=== PATIENT | female | born 1975 | race Caucasian/White ===

== ENCOUNTER 2017-01-06 17:00 | Inpatient (IN) | payer OTHER ==
[2017-01-04] MEDS: IBUPROFEN 800 MG TABLET PO PRN (20:40)
[2017-01-06] MEDS ORDERED: RINGERS SOLUTION,LACTATED 1,000 ML IV ONE (17:36)
[2017-01-06] MEDS ORDERED: DEXTROSE 5%-LACTATED RINGERS 1,000 ML IV PRN (17:36)
[2017-01-06] MEDS ORDERED: LIDOCAINE HCL 50 ML VIAL PERI PRN (17:36)
[2017-01-06] MEDS ORDERED: OXYTOCIN/DEXTROSE 5%-WATER 30 UNITS/500 ML BAG IV ONE ×2 (17:36→19:48)
[2017-01-06] MEDS ORDERED: RINGERS SOLUTION,LACTATED 1,000 ML IV PRN (17:36)
[2017-01-06] MEDS ORDERED: BUPIVACAINE HCL/0.9 % NACL/PF 250 ML EP PRN (18:16)
--- NOTE | 2017-01-06 18:22 | OR ---
Anesthesia Pre Procedure Eval Date of Service: 01/06/17 Pre Procedure Evaluation: Last Vital Signs Temp Pulse Resp BP Pulse Ox Anesthesia Pre Procedure Evaluation Heart Rate:82 Blood Pressure:115/79 Termperature:36.4 Respiratory Rate:18 SaO2:97 DATE: 01/06/2017 TIME; 1820 INDICATIONS: Active labor, labor pain PAST MEDICAL HISTORY: Multipara patient in active labor, membranes just ruptured. She has a history of rapid delivery after rupturing the membranes. EXAM: Heart regular; lungs clear ASSESSMENT OF MEDICAL STATUS: Appropriate candidate for labor analgesia PLANNED PROCEDURE: Combination spinal epidural for labor analgesia. Home Medications: HOME MEDICATIONS Vit#96/Ferrous Fum/FA [ S] 1 tab PO DAILY 11/22/15 [Last Taken 11/22/15 1 tab] Ibuprofen [Motrin] 800 mg PO Q6H PRN #0 tablet 11/25/15 [Last Taken Unknown]
[2017-01-06] MEDS ORDERED: fentaNYL CITRATE/PF 50 MCG/ML AMPUL IT SCH (18:30)
[2017-01-06] MEDS ORDERED: fentaNYL CITRATE/PF 50 MCG/ML AMPUL ONE (18:32)
--- NOTE | 2017-01-06 18:44 | OR ---
Anesthesia Procedure Note - Anesthesia Procedure Note Date of Service: 01/06/17 Narrative: Vital Signs - Last Taken Temp 36.6 C 11/25/15 13:00 Pulse Resp BP 114/51 11/25/15 13:00 Pulse Ox 01/06/17 18:42 ANESTHESIA PROCEDURE NOTE Date of Procedure: 01/06/2017 Time of procedure:. 1820 Performed by: HILL Anglin CRNA, MSN Fish Culturist: Kathy Foster RN. Preprocedure diagnosis: Active labor, labor pain. Post procedure diagnosis: Same. Procedure: Labor Epidural Placement L3 4. Indications: Labor pain. Findings: See below. Details of the procedure: The patient was placed on the side of the bed in sitting position. The patient was prepped with DuraPrep and draped in a sterile fashion. Lidocaine 1% was infiltrated to the skin and subcutaneous tissues at the level of the L3 4 interspace. The epidural space was identified using a 18-gauge Tuohy needle with [id number] technique. Fentanyl 20 g was given intrathecally the intrathecal needle was then removed and the epidural catheter was threaded approximately 4 cm, the epidural needle was then removed, and after careful aspiration 3 mL of 1.5% lidocaine with 1-200,000 epinephrine was injected without change in maternal heart rate or sensorium. The catheter was then taped in place. EBL: Minimal. Fluids: N/A. Specimen: N/A. Post procedure condition: The patient tolerated the procedure well with. Relief. No complications were noted. Thank you for this consultation. Graeme Min CRNA, SLASHER TENDER HELPER, MSN
[2017-01-06] MEDS ORDERED: GLYCERIN/WITCH HAZEL LEAF 40 APPL BOX TP PRN (19:48)
[2017-01-06] MEDS ORDERED: HYDROCORTISONE 30 APPL TUBE TP PRN (19:48)
[2017-01-06] MEDS ORDERED: BENZOCAINE/MENTHOL 81 SPRAY CAN TP PRN (19:48)
[2017-01-06] MEDS ORDERED: oxyCODONE HCL/ACETAMINOPHEN 1 TAB TABLET PO PRN ×2 (19:48)
[2017-01-06] MEDS ORDERED: SENNOSIDES 8.6 MG TABLET PO PRN (19:48)
[2017-01-06] MEDS ORDERED: BISACODYL 10 MG SUPP.RECT RC PRN (19:48)
--- NOTE | 2017-01-06 19:52 | OR ---
Operative Report - Dictated Report Narrative: Spontaneous Vaginal Delivery Viable male with APGARS of 9 at 1 and 9 at 5 minutes. She delivered at 1927. Presentation was LUANA. A double loose nuchal cord was noted and reduced after delivery of the head. The anterior shoulder delivered without difficulty followed by the left shoulder and the remainder of the baby. Baby was placed on the maternal abdomen and spontaneous cry was noted. The cord was clamped and cut after approximately 60 seconds. Weight: 6 pounds 12.3 ounces or 3072 g Placenta was delivered spontaneously and intact. Second-degree midline vaginal laceration was noted and repaired with 2-0 Vicryl. Estimated blood loss: 150 ml Mother and baby tolerated delivery well. History for Definition: * The number of deliveries resulting in a live the patient experienced prior to current hospitalization * The previous delivery of live twins or any live multiple gestation is considered one live event. *If primagravida or nulliparous is documented select zero for the number of previous live births. Live Events: 2
[2017-01-06] MEDS: DOCUSATE SODIUM 100 MG CAPSULE PO SCH (21:29)
[2017-01-06] MEDS: IBUPROFEN 800 MG TABLET PO PRN (22:30)
[2017-01-07] MEDS: IBUPROFEN 800 MG TABLET PO PRN ×2 (04:38→12:44)
[2017-01-07] MEDS: DOCUSATE SODIUM 100 MG CAPSULE PO SCH ×2 (10:08→20:39)
[2017-01-07] MEDS: PRENATAL VIT#96/FERROUS FUM/FA 1 TAB TABLET PO SCH (10:08)
--- NOTE | 2017-01-07 11:52 | PN ---
Progess Note - Interim Narrative: 01/07/17 11:51 progress note Subjective: The patient is doing well. She is ambulating, voiding, tolerating by mouth. She has minimal pain and moderate lochia. Objective: General: No acute distress Abdomen: Soft, nontender, fundus is firm just below the umbilicus Extremities: minimal edema, nontender to palpation Assessment and plan: day 1 Feeding: Bottle Pain: Controlled with by mouth medication control: Possibly permanent Routine care.
[2017-01-08] MEDS: IBUPROFEN 800 MG TABLET PO PRN ×2 (00:40→10:55)
[2017-01-08 08:26] VITALS: BP 113/58
[2017-01-08] MEDS: DOCUSATE SODIUM 100 MG CAPSULE PO SCH (08:51)
[2017-01-08] MEDS: PRENATAL VIT#96/FERROUS FUM/FA 1 TAB TABLET PO SCH (08:51)
--- NOTE | 2017-01-08 08:56 | PN ---
Progess Note - Interim Narrative: 01/08/17 08:56 progress note Subjective: The patient is doing well. She is ambulating, voiding, tolerating by mouth. She has minimal pain and moderate lochia. Objective: General: No acute distress Abdomen: Soft, nontender, fundus is firm just below the umbilicus Extremities: minimal edema, nontender to palpation Assessment and plan: day 2 Feeding: Bottle Pain: Controlled with by mouth medication control: OCPs until 's vasectomy Routine care.
== END 2017-01-08 14:10 | disposition home or self-care (01) | DRG 775 ==
LOC: OB 17:00
PROVIDERS: ADMIT Obstetrics & Gynecology; ATTEND Obstetrics & Gynecology Gynecologic Oncology
PROC: 10E0XZZ Delivery of Products of Conception, External Approach (ICD-10-PCS; principal; 2017-01-06)
PROC: 0KQM0ZZ Repair Perineum Muscle, Open Approach (ICD-10-PCS; 2017-01-06)
PROC: 4A1HXCZ Monitoring of Products of Conception, Cardiac Rate, External Approach (ICD-10-PCS; 2017-01-06)
PROC: 3E0S3CZ (ICD-10-PCS; 2017-01-06)
DX: O69.81X0 Labor and delivery complicated by cord around neck, without compression, not applicable or unspecified (principal); O70.1 Second degree perineal laceration during delivery; D25.9 Leiomyoma of uterus, unspecified; O09.513 Supervision of elderly primigravida, third trimester; Z3A.38 38 weeks gestation of pregnancy; Z37.0 Single live birth

== ENCOUNTER 2017-09-26 17:51 | Emergency (ER) | payer OTHER ==
--- NOTE | 2017-09-26 18:19 | ERNOTE ---
Chest Pain/Cardiac HPI Date of Service: 09/26/17 Chief Complaint: Palpitations Time Seen by Provider: 09/26/17 18:05 Source: patient Exam Limitations: no limitations Immunizations: IMMUNIZATION HX Immunizations Up to Date Yes History of Influenza Vaccine No Hx Pneumococcal Vaccination No Allergies/Adverse Reactions: Allergies No Known Allergies Allergy (Verified 09/26/17 18:10) Home Medications: HOME MEDICATIONS NK [No Home Medication] 09/26/17 [Last Taken Unknown] Narrative: Pt. comes in with c/o palpitations for a week. pt. states that she feels her heart beating heavily but denies and skipping of beats or beating fast. Pt. denies any syncope, dizziness, malaise, fatigue, SOB, CP, NVD, fever, recent illness, or recent injury. Pt. states that the last time that she was at the doctor that she felt fine and it was after having a baby 7 months ago and her blood pressure has always been normal as well. Review of Systems - Review of Systems Constitutional: Present: no symptoms reported. Absent: recent illness, fever, chills, weakness, fatigue, malaise EYE: Present: no symptoms reported ENT: Present: no symptoms reported Respiratory: Present: no symptoms reported. Absent: shortness of breath, cough , orthopnea, wheezing Cardiology: Present: palpitations. Absent: chest pain, syncope, edema, claudication Gastrointestinal/Abdominal: Present: no symptoms reported. Absent: nausea, vomiting, diarrhea, abdominal pain Genitourinary: Present: no symptoms reported Musculoskeletal: Present: no symptoms reported. Absent: back pain, neck pain, joint pain Skin: Present: no symptoms reported. Absent: rash, change in color Neurological: Present: no symptoms reported. Absent: headache, dizziness/light- headedness, weakness, numbness, tingling Psych: Present: no symptoms reported. Absent: anxiety, depressed All Other Systems: All systems neg except as marked - Patient's Past Medical History Patient History - Medical: No pertinent hx Patient History - Cardiac/Respiratory: No pertinent hx Patient History - Cancer: No Hx of Cancer Patient History - Surgical Procedures: Other, Orthopedic Patient History - Other: None LMP (females 10-50): last week - Social History Living Situations: home Smoking Status: Never smoker - Immunizations Immunizations Up to Date: Yes Hx Pneumococcal Vaccination: No History of Influenza Vaccine: No Physical Exam - Physical Exam General Appearance: Present: wd/wn, alert, no apparent distress Head Exam: Present: normal inspection, no evidence of injury Eye Exam: Normal inspection: bilateral, PERRL: bilateral, EOMI: bilateral Ears, Nose, Throat: Present: normal ENT inspection, normal pharynx Neck: Present: normal inspection, nontender. Absent: lymphadenopathy (R), lymphadenopathy (L) Respiratory: Present: no respiratory distress, normal breath sounds, no accessory muscle use, chest nontender, lungs clear Cardiovascular/Chest: Present: regular rate, rhythm, no murmur, normal peripheral pulses Gastrointestinal/Abdominal: Present: normal bowel sounds, nontender, nondistended, soft, no organomegaly Back Exam: Present: normal inspection Extremity Exam: Present: normal inspection Neurological Exam: Present: alert, oriented, normal mood/affect, no motor/ sensory deficits Skin Exam: Present: normal color, warm/dry. Absent: pallor, skin rash ED Progress - Date and Time Seen: Date and Time: 09/26/17 19:[address] Yeboah and as pt. is not symptomatic just feels her heart beating, and her exam and testing is negative feel that pt. needs to follow up to evaluate st depression and htn - Vital Signs Patient's Vital Signs:: I have reviewed the patient's vital signs. Vital Signs: Vital Signs 09/26/17 18:06 Temperature 38.0 C H Pulse Rate 86 Respiratory 14 Rate Blood Pressure 151/87 O2 Sat by Pulse 99 Oximetry - EKG EKG: ST depression - moderate in inferior leads and anterior EKG read: Reviewed by me EKG Comments: Interp by Dr Yeboah. - X-Ray X-Ray #1 X-Ray: chest Interpretation: Reviewed by me X-ray Comments: no consolidation, no cardiomegaly, no infiltrate - Progress/Reassessment Chief Complaint: Palpitations Departure Clinical Impression: Heart palpitations - Departure Disposition: Home self-care Condition: Good Instructions: Palpitations, [id number] Additional Instructions: Please follow up with Dr Shore on friday call for appointment. Referrals: Ashly Kimbrough DO [Primary Care Provider] -
[2017-09-26 18:32] LABS: Hematocrit 43.3 % (37.0-47.0); Hemoglobin 15.2 gm/dL (12.5-16.0); Mean Cell Volume 84.9 fl (78-100); Mean Corpuscular Hemoglobin 29.8 pg (27-31); Mean Corpuscular Hgb Conc 35.1 g/dl (32-36); Mean Platelet Volume 10.8 fl (6.0-9.5); Neutrophil # 5.8 K/mm3 (1.3-6.0); Neutrophil % 63.8 % (42-75.0); Platelet Count 314 K/mm3 (150-450); Red Cell Distribution Width 12.6 % (11.5-14.0); White Blood Count 9.1 K/mm3 (4.0-10.5)
[2017-09-26 18:44] LABS: Prothrombin Time (Patient) 9.9 Seconds (9.0-11.0)
[2017-09-26 18:45] LABS: INR 0.99 INR (0.90-1.10); Partial Thrombolplastin Time 26.5 Seconds (24-32)
[2017-09-26 18:52] LABS: ALT 21 U/L (19-67); AST 17 U/L (0-48); Albumin * 3.9 gm/dl (3.4-5.0); Alkaline Phosphatase * 81 U/L (50-170); Anion Gap 13.6 mmol/L (6.8-13.8); BUN/Creatinine Ratio 14.9 (9.0-21.6); Bilirubin, Total 0.5 mg/dL (0.0-1.1); Blood Urea Nitrogen 15 mg/dL (3-23); Ca. Corrected For Albumin 8.8 mg/dL (8.4-10.2); Carbon Dioxide 25.7 mmol/L (24-32.6); Chloride 103 mmol/L (97-106); Glucose * 101 mg/dL (70-110); Potassium 3.3 mmol/L (3.4-4.6); Sodium 139 mmol/L (132-142); TSH * 1.073 uIU/mL (0.358-3.74); Total Protein 7.4 gm/dL (6.2-8.2); Troponin I Less than 0.017 ng/ml (0.00-0.10)
[2017-09-26 20:14] VITALS: BP 145/86
== END 2017-09-26 20:17 | disposition home or self-care (01) ==
LOC: ER 17:51
DX: R00.2 Palpitations (principal)

== ENCOUNTER 2021-02-19 00:01 | Inpatient (IN) ==
[2021-02-19] MEDS ORDERED: ONDANSETRON 4 MG TAB.RAPDIS PO PRN (06:28)
[2021-02-19] MEDS ORDERED: DEXTROSE 5%-LACTATED RINGERS 1,000 ML IV PRN (06:28)
[2021-02-19] MEDS ORDERED: RINGER'S SOLUTION,LACTATED 1,000 ML IV ONE (06:28)
[2021-02-19] MEDS ORDERED: OXYTOCIN/0.9 % SODIUM CHLORIDE 30 UNITS/500 ML BAG IV ONE ×2 (06:28→10:07)
[2021-02-19] MEDS ORDERED: NALOXONE HCL 1 MG/1 ML SYRG IV PRN (08:23)
[2021-02-19] MEDS ORDERED: ONDANSETRON HCL/PF 2 MG/ML VIAL IV PRN (08:23)
[2021-02-19] MEDS ORDERED: BUPIVACAINE HCL/0.9 % NACL/PF 250 ML EP PRN (08:23)
[2021-02-19] MEDS ORDERED: BUPIVACAINE HCL/PF 30 ML VIAL EP SCH ×2 (08:30→11:15)
--- NOTE | 2021-02-19 09:03 | HP ---
Chief Complaint - Chief Complaint Date of Service: 02/19/21 Time of Service: 08:10 Chief Complaint: induction of labor for AMA History of Present Illness: 45 yo admitted at 39w0d for induction of labor due to AMA. This complicated by anemia, AMA, fibroid uterus, h/o PTD (36wks), and late PNC. Rh negative Rubella Nonimmune GBS negative Medical History (Last Reviewed 02/19/21 @ 08:59 by Sourav Vigil DO) Advanced maternal age (AMA), 40 years or greater (Acute) Late care (Acute) 22wks History of delivery (Chronic) 36 wk Uterine fibroid History of delivery Surgical History: Surgical History (Last Reviewed 02/19/21 @ 08:59 by Sourav Vigil DO) History of breast augmentation Onset Date: ~2004 History of knee surgery Onset Date: ~1999 right knee arthroscopy History of wisdom tooth extraction Family History: Family History (Last Reviewed 02/19/21 @ 09:00 by Sourav Vigil DO) Father Hypertension Grandmother Hypertension Cancer Mother Alive and well Social History: (Last Reviewed 02/19/21 @ 09:00 by Sourav Vigil DO) Social History: adopted: No Marital status: household members: spouse current occupational status: employed current occupation: [employer] Highest level of school completed/degree received: some college, no degree Service: No Tobacco: Smoking Status: Never smoker Alcohol: alcohol intake: never Substance Use: substance use type: does not use Dietary Habits: caffeine: Yes Type: tea Review Of Systems (GEN) - Review of Systems Generalized/Overall Review: Present: No Symptoms Reported EENTM: Present: No Symptoms Reported Respiratory: Present: No Symptoms Reported Cardiac: Present: No Symptoms Reported Abdominal: Present: No Symptoms Reported Genitourinary: Present: No Symptoms Reported Musculoskeletal: Present: No Symptoms Reported Neurological: Present: No Symptoms Reported Skin: Present: No Symptoms Reported Endocrine: Present: No Symptoms Reported Immunizations: IMMUNIZATION HX Immunizations Up to Date Yes History of Influenza Vaccine No Hx Pneumococcal Vaccination No Allergies/Adverse Reactions: Allergies Allergy/AdvReac Type Severity Reaction Status Date / Time No Known Allergies Allergy Verified 02/19/21 06:29 Home Medications: HOME MEDICATIONS Vits96/Iron Fum/Folic [ S] 1 tab PO DAILY 04/05/21 [Last Taken Unknown] Exam - Exam Vital Signs: Vital Signs - Last Taken Temp 36.8 C 02/19/21 06:38 Pulse 83 02/19/21 06:38 Resp 20 02/19/21 06:38 BP 111/73 02/19/21 06:38 Pulse Ox 98 02/19/21 06:38 Constitutional: Present: Alert, Oriented x3, Cooperative, No distress ENT Exam: Present: hearing grossly normal Neck: Present: non-tender, trachea midline. Absent: thyromegaly Breasts: Present: Exam deferred Respiratory: Present: lungs clear, no respiratory distress Cardiovascular/Chest: Present: normal peripheral pulses, regular rate, rhythm Abdomen: Present: soft, nontender, no rebound tenderness, other - gravid /Rectal: Present: Other - cervix 3/75/-2 Extremity: Present: no pedal edema, no calf tenderness Skin Exam: Present: normal color, warm/dry, no cyanosis Lymphatic: Present: no adenopathy Neurologic: Present: alert, normal mood/affect, oriented x 3 Appearance: Present: appropriate appearance, appropriate insight Eye contact: Present: cooperative, good eye contact Thoughts: Present: normal thought pattern, normal mood /affect Assessment/Plan - Assessment/Plan (1) Advanced maternal age (AMA), 40 years or greater Assessment: Admit for pitocin induction of labor. Epidural PRN. Rubella PP. Problem: Chronic (2) Late care Problem: Chronic (3) History of delivery Problem: Chronic (4) Fibroid Problem: Chronic Qualifiers: Uterine leiomyoma location: unspecified location Qualified Code(s): D25.9 - Leiomyoma of uterus, unspecified (5) Not immune to rubella Problem: Chronic
--- NOTE | 2021-02-19 09:03 | ANES ---
Anesthesia Pre Procedure Eval Vitals/Labs: Last Vital Signs Temp 36.8 C 02/19/21 06:38 Pulse 83 02/19/21 06:38 Resp 20 02/19/21 06:38 BP 111/73 02/19/21 06:38 Pulse Ox 98 02/19/21 06:38 HOME MEDICATIONS Vits96/Iron Fum/Folic [ S] 1 tab PO DAILY 02/19/21 [Last Taken Unknown] Allergies/Adverse Reactions: Allergies Allergy/AdvReac Type Severity Reaction Status Date / Time No Known Allergies Allergy Verified 02/19/21 06:29 - Planned Procedure Planned Procedure: Labor epidural Medication List Reviewed:: Yes Allergies Verified: Yes Medical History (Last Reviewed 02/19/21 @ 08:59 by Sourav Vigil DO) Advanced maternal age (AMA), 40 years or greater (Acute) Late care (Acute) 22wks History of delivery (Chronic) 36 wk Uterine fibroid History of delivery Surgical History (Last Reviewed 02/19/21 @ 08:59 by Sourav Vigil DO) History of breast augmentation Onset Date: ~2004 History of knee surgery Onset Date: ~1999 right knee arthroscopy History of wisdom tooth extraction Family History (Last Reviewed 02/19/21 @ 09:00 by Sourav Vigil DO) Father Hypertension Grandmother Hypertension Cancer Mother Alive and well - Anesthesia Assessment and Plan ASA Class: PS, II Anesthesia Type Plan: Epidural
--- NOTE | 2021-02-19 09:06 | PN ---
Progess Note - Interim Date: 02/19/21 Time: 09:04 Narrative: 02/19/21 09:04 Patient becoming very uncomfortable with contractions Vital signs stable. Pitocin at 4 mu/min. FHT: 130 baseline, reassuring contractions q 2-3 min Cervix: 5/80/-2, AROM at 810-clear Impression: Intrauterine at 39 weeks induction of labor for advanced maternal age Plan: Epidural and anticipate normal spontaneous vaginal delivery soon.
--- NOTE | 2021-02-19 09:18 | ANES ---
Anesthesia Procedure Note Procedure Note: ANESTHESIA PROCEDURE NOTE Date of Procedure: 02/19/2021. Time of procedure: 904. Performed by: Martin Osborn CRNA Applications Manager: None. Preprocedure diagnosis: Active labor. Post procedure diagnosis: Same. Procedure: Insertion of labor epidural. Indications: The patient is a 45-year-old female in active labor requesting labor epidural for pain management. Findings: See below. Details of the procedure: The patient was placed in a sitting position. DuraPrep as well as Betadine swabs X3 was applied to the patient's back. Patient was then draped in a sterile fashion. Lidocaine 1% was infiltrated to the skin and subcutaneous tissues at the level of the L3-4 interspace. The epidural space was identified using a 18-gauge Tuohy needle with [id number] technique. Epidural catheter was inserted to a depth of 10 centimeters at skin. Negative test dose was elicited using 3 mL of 1.5% preservative-free lidocaine plus epinephrine 1 200,000. The epidural catheter was then taped and secured in place. A loading dose of 8 mL of 0.25% preservative-free bupivacaine was administered to the epidural catheter after negative aspiration for blood and CSF. EBL: Minimal. Fluids: N/A. Specimen: N/A. Post procedure condition: The patient tolerated the procedure well. No complications were noted. Thank you for this consultation. Martin Osborn CRNA
--- NOTE | 2021-02-19 09:18 | ANES ---
Post Anesthesia Assessment - Vital Signs Vitals: Last Vital Signs Temp 36.8 C 02/19/21 06:38 Pulse 83 02/19/21 06:38 Resp 20 02/19/21 06:38 BP 111/73 02/19/21 06:38 Pulse Ox 98 02/19/21 06:38 Airway Patency: Normal - Mental Status Level Of Consciousness: Awake - N/V Assessment Nausea/Vomiting Presence: None Dehydration:: No
--- NOTE | 2021-02-19 10:05 | OR ---
Operative Report - Dictated Report Narrative: Spontaneous vaginal delivery of vigorously crying viable female at 936 on 02/19/2021 with Apgars 9 and 10, weighing 3713 g in ACOSTA position. Cord clamping delayed approximately 1 minute Placenta delivered complete, intact, with three vessel cord Estimated blood loss: 100 mL Anesthesia: Epidural Lacerations: Second-degree vaginal laceration (3 cm) repaired with 3-0 Vicryl Rapide History for MU History for Definition: * The number of deliveries resulting in a live the patient experienced prior to current hospitalization * The previous delivery of live twins or any live multiple gestation is considered one live event. *If primagravida or nulliparous is documented select zero for the number of previous live births. Live Events: Live Events: 3
[2021-02-19] MEDS ORDERED: HYDROCORTISONE 30 APPL TUBE TP PRN (10:07)
[2021-02-19] MEDS ORDERED: SENNOSIDES 8.6 MG TABLET PO PRN (10:07)
[2021-02-19] MEDS ORDERED: oxyCODONE HCL/ACETAMINOPHEN 1 TAB TABLET PO PRN (10:07)
[2021-02-19] MEDS ORDERED: BISACODYL 10 MG SUPP.RECT RC PRN (10:07)
[2021-02-19] MEDS ORDERED: BENZOCAINE/MENTHOL 81 SPRAY CAN TP PRN (10:07)
[2021-02-19] MEDS ORDERED: IBUPROFEN 800 MG TABLET PO PRN (10:07)
[2021-02-19] MEDS ORDERED: GLYCERIN/WITCH HAZEL LEAF 40 APPL BOX TP PRN (10:07)
[2021-02-19] MEDS: IBUPROFEN 800 MG TABLET PO PRN ×2 (10:55→17:45)
[2021-02-19] MEDS: DOCUSATE SODIUM 100 MG CAPSULE PO SCH (20:26)
[2021-02-20] MEDS: IBUPROFEN 800 MG TABLET PO PRN ×4 (00:41→21:46)
[2021-02-20] MEDS: PRENATAL VITS96/IRON FUM/FOLIC 1 TAB TABLET PO SCH (08:12)
[2021-02-20] MEDS: DOCUSATE SODIUM 100 MG CAPSULE PO SCH ×2 (08:13→21:43)
--- NOTE | 2021-02-20 08:29 | PN ---
Subjective - Date and Time Seen Date: 02/20/21 Time: 08:29 Objective - Vitals Vitals: Last Vital Signs Temp 37.0 C 02/20/21 08:03 Pulse 75 02/20/21 08:03 Resp 18 02/20/21 08:03 BP 132/66 02/20/21 08:03 Pulse Ox 97 02/20/21 08:03 Patient denies complaints. Lochia wnl abdomen - soft, nontender Uterus -firm, at umbilicus - 1 No calf tenderness Impression: day #1 - s/p spontaneous vaginal delivery. Plan: Continue routine care Assessment/Plan - Problems/Diagnosis (1) Advanced maternal age (AMA), 40 years or greater Problem: Chronic (2) Late care Problem: Chronic (3) History of delivery Problem: Chronic (4) Fibroid Problem: Chronic Qualifiers: Uterine leiomyoma location: unspecified location Qualified Code(s): D25.9 - Leiomyoma of uterus, unspecified (5) Not immune to rubella Problem: Chronic
[2021-02-21] MEDS: IBUPROFEN 800 MG TABLET PO PRN (07:36)
[2021-02-21 07:43] VITALS: BP 123/63
[2021-02-21] MEDS: PRENATAL VITS96/IRON FUM/FOLIC 1 TAB TABLET PO SCH (08:40)
[2021-02-21] MEDS: DOCUSATE SODIUM 100 MG CAPSULE PO SCH (08:40)
--- NOTE | 2021-02-21 10:51 | PN ---
Subjective - Date and Time Seen Date: 02/21/21 Time: 10:50 Objective - Vitals Vitals: Last Vital Signs Temp 36.7 C 02/21/21 07:40 Pulse 70 02/21/21 07:40 Resp 16 02/21/21 07:40 BP 123/63 02/21/21 07:40 Pulse Ox 99 02/21/21 07:40 Patient denies complaints. Bottlefeeding. Lochia wnl abdomen - soft, nontender Uterus -firm, at umbilicus - 2 No calf tenderness Impression: day #2 - s/p spontaneous vaginal delivery. Plan: Routine discharge instructions Assessment/Plan - Problems/Diagnosis (1) Advanced maternal age (AMA), 40 years or greater Problem: Chronic (2) Late care Problem: Chronic (3) History of delivery Problem: Chronic (4) Fibroid Problem: Chronic Qualifiers: Uterine leiomyoma location: unspecified location Qualified Code(s): D25.9 - Leiomyoma of uterus, unspecified (5) Not immune to rubella Problem: Chronic (6) Vaginal delivery Problem: Resolved
--- NOTE | 2021-02-21 10:53 | DS ---
OB Discharge Summary (1) Advanced maternal age (AMA), 40 years or greater Status: Chronic (2) Late care Status: Chronic (3) History of delivery Status: Chronic (4) Fibroid Status: Chronic Qualifiers: Uterine leiomyoma location: unspecified location Qualified Code(s): D25.9 - Leiomyoma of uterus, unspecified (5) Not immune to rubella Status: Chronic (6) Vaginal delivery Status: Resolved Delivery Date: 02/19/21 Delivery Time: 09:36 :: 5 Para:: 4 Gestational weeks:: 39 Gestational days:: 0 Intrapartum Procedures: Spontaneous Vaginal Delivery, Delivered, Anesthesia - Epidural Discharge Diagnosis: Term -Delivered - Discharge Information Date of Discharge: 02/21/21 Hospital Course: 45-year-old 5 now para 4 admitted for induction of labor at 39 weeks for advanced maternal age. Her delivery and course were uncomplicated and she was discharged on day 2 with routine discharge instructions. Discharge Location: Home Disposition: Home self-care Condition: Good Referrals: Sommer Shore MD [Primary Care Provider] - Activity on Discharge:: Activity as tolerated, Pelvic Rest Discharge Diet: General/regular food Additional Patient Instructions (free text): Cha your follow up appointment is scheduled for March 22 @ 9:[address] Vigil. Valentin's follow up appointment is scheduled for FridayFebruary 23 @ 11:[address] Goldberg. Her blood type is B- Discharge weight 7 lbs 13.2 oz Continue to bottlefeed her at least every 3-[address] her on her back to sleep in her own bassinet or crib. No loose blankets, bumper pads, stuffed animals or pillows. Thank you for choosing [facility]. If you have any questions or concerns, please don't hesitate to call us at [phone]. Prescriptions (Any new or edited meds): Ibuprofen [Motrin] 200 - 800 mg PO Q6H PRN #100 tab PRN Reason: Pain Complete Home Medications List: Complete Home Medication List: Vits96/Iron Fum/Folic [ S] 1 tab PO DAILY 02/19/21 Ibuprofen [Motrin] 200 - 800 mg PO Q6H PRN #100 tab 02/20/21 - Plan Discharge to:: Home Follow up in office in:: 3-4 weeks - Information Weight (Grams): 3,713 Infant Sex: Female Score 1 min: 9 Score 5 min: 10 Infant Complications: None
== END 2021-02-21 11:45 | disposition home or self-care (01) | DRG 807 ==
LOC: OB 06:14
PROVIDERS: ADMIT Obstetrics & Gynecology; ATTEND Obstetrics & Gynecology